=== PATIENT | female | born 1965 | race Caucasian/White ===

== ENCOUNTER 2017-05-25 17:28 | Emergency (ER) | payer BC, OTHER ==
[2017-05-25] MEDS ORDERED: Lidocaine 1% PF 5 ML VIAL ONE ×2 (18:45→18:48)
[2017-05-25] MEDS ORDERED: Ondansetron HCl/PF 4 MG/2 ML Vial ONE (18:53)
[2017-05-25] MEDS ORDERED: Lorazepam 2 MG/ML VIAL ONE (18:53)
--- NOTE | 2017-05-25 19:39 | RAD ---
RADIOGRAPH RIGHT WRIST 2 VIEWS: ATTENTION LINO IN BILLING: This is actually a two view study rather than a three view study, despite the header in [place]. ADIOGRAPH RIGHT WRIST TWO VIEWS: DATE: 05/25/2017 TIME: 5:38 p.m. HISTORY: 51-year-old female, status post acute right wrist injury due to fall. FINDINGS: There is a significantly comminuted fracture of the distal radial metaphysis and epiphysis, with sig nificant dorsal angulation of the main overall distal fracture fragment complex. There is no obviou s dislocation, but only two oblique views are submitted. The distal ulna is obscured by the radius on both views. The carpal bones are also poorly visualized. IMPRESSION: Acute, traumatic, comminuted, displaced, and angulated distal radial metaphyseal and epiphyseal frac ture. POS: [facility]
[2017-05-25] MEDS ORDERED: Diprivan 20 ML ONE (19:45)
[2017-05-25] MEDS ORDERED: Fentanyl 100 MCG/2 ML VIAL ONE ×3 (19:45→21:47)
[2017-05-25] MEDS ORDERED: Ketorolac Tromethamine 30 MG/ML VIAL ONE (19:45)
[2017-05-25] MEDS ORDERED: HYDROcodone/Acetaminophen 10/325 mg Tablet ONE (20:24)
--- NOTE | 2017-05-25 22:12 | RAD ---
RADIOGRAPH RIGHT WRIST TWO VIEWS: 05/25/2017 8:15 p.m. HISTORY: 51-year-old female, status post acute traumatic fracture of the distal radius. COMPARISON: 05/25/2017 at 5:38 p.m. FINDINGS: The wrist has been placed into a splint. There is interval improvement in alignment of the distal r adial fracture. IMPRESSION: Interval improvement in alignment, after reduction, of the acute, traumatic, very comminuted fractur e of the distal radial epiphysis and metaphysis, including involvement of the radiocarpal joint surf maci (with minimal step-off). POS: [facility]
== END 2017-05-25 22:06 | disposition home or self-care (01) ==
LOC: ERS 17:28
DX: S52.501A Unspecified fracture of the lower end of right radius, initial encounter for closed fracture (principal); V00.131A Fall from skateboard, initial encounter
CPT/HCPCS: 25605; 96374; 96375; 96376; J1885; J2001; J2060; J2270; J2405; J2704; J3010

== ENCOUNTER 2021-02-08 11:49 | Outpatient (CLI) | payer OTHER | END 2021-02-08 11:50 | disposition home or self-care (01) | LOC: BICMAMMO 11:49 | PROVIDERS: ATTEND Obstetrics & Gynecology | DX: Z12.31 Encounter for screening mammogram for malignant neoplasm of breast (principal) | CPT/HCPCS: 77063; 77067 ==

== ENCOUNTER 2021-12-23 12:57 | Emergency (ER) | payer OTHER ==
[2021-12-23] MEDS ORDERED: Metoclopramide HCl 10 MG/2 ML VIAL ONE (14:29)
[2021-12-23] MEDS ORDERED: Ketorolac Tromethamine 30 MG/ML VIAL ONE (14:29)
[2021-12-23] MEDS ORDERED: diphenhydrAMINE 50 MG/ML VIAL ONE (14:29)
[2021-12-23] MEDS ORDERED: Oxymetazoline HCl 0.05% (30 ML BOT) ONE (14:29)
[2021-12-23] MEDS ORDERED: Magnesium 2 GM/50 ML BAG (IN WATER) ONE (14:29)
[2021-12-23] MEDS ORDERED: methylPREDNISolone Sod Succ/PF 125 MG/2 ML VIAL ONE (14:29)
[2021-12-23] MEDS ORDERED: Acetaminophen 500 MG TAB ONE (14:29)
== END 2021-12-23 16:29 | disposition home or self-care (01) ==
LOC: ERS 12:57
DX: J01.90 Acute sinusitis, unspecified (principal); E03.9 Hypothyroidism, unspecified
CPT/HCPCS: 96365; 96368; 96375; J1200; J1885; J2765; J2930; J3475

== ENCOUNTER 2022-10-01 09:25 | Outpatient (CLI) | payer OTHER | END 2022-10-01 09:26 | disposition home or self-care (01) | LOC: BICMAMMO 09:25 | PROVIDERS: ATTEND Family Medicine | DX: Z12.31 Encounter for screening mammogram for malignant neoplasm of breast (principal) | CPT/HCPCS: 77063; 77067 ==

== ENCOUNTER 2022-12-07 08:42 | Day surgery (SDC) | payer OTHER ==
[2022-12-05 13:47] VITALS: BMI 37.2
[2022-12-07] MEDS ORDERED: PROPOFOL 200 MG/20 ML VIAL ONE (11:15)
== END 2022-12-07 12:28 | disposition home or self-care (01) ==
LOC: SDC 08:42
PROVIDERS: ATTEND Internal Medicine Gastroenterology
PROC: 0DJD8ZZ Inspection of Lower Intestinal Tract, Via Natural or Artificial Opening Endoscopic (ICD-10-PCS; principal; 2022-12-07)
DX: Z12.11 Encounter for screening for malignant neoplasm of colon (principal); K57.30 Diverticulosis of large intestine without perforation or abscess without bleeding; K64.9 Unspecified hemorrhoids; E03.9 Hypothyroidism, unspecified; E66.9 Obesity, unspecified; Z68.37 Body mass index [BMI] 37.0-37.9, adult; Z79.890 Hormone replacement therapy; Z88.5 Allergy status to narcotic agent
CPT/HCPCS: J2704